=== PATIENT | female | born 1980 | race Caucasian/White ===

== ENCOUNTER 2017-05-19 22:26 | Emergency (ER) | payer OTHER ==
[2017-05-19 22:46] VITALS: BP 140/73; PULSE 85; TEMP 98.3; BMI 29.8
--- NOTE | 2017-05-19 23:20 | PDOC ---
History of Present Illness - History of Present Illness Initial Comments: 05/19/17 23:41 The patient is a 36 year old female, with a significant past medical history of trigeminal neuralgia, who presents to the emergency department with 5 days of right sided facial pain extending from her right maxilla to her her posterior right ear without extension past her right jaw. The patient states she has not experienced this pain in a while, however, the last experience with this pain only lasted one day. She states she can not eat, sleep, talk, or touch her face without experiencing pain. She states she has been taking Tylenol with little to no relief of her pain. She reports the right side of her throat hurts when she swallows. She states she was advised not to take aspirin or ibuprofen because she is two weeks into methotrexate treatment for ectopic . She reports using hot tea bags on the right, upper gums in her mouth which offers temporary pain relief. She also reportedly used heated bags of rice just under her right eye which also alleviated some pain there temporarily. She denies blurred vision. She denies tinnitus. She denies chest pain, shortness of breath, headache and dizziness. She denies fever, chills, nausea, vomit, diarrhea and constipation. She denies dysuria, frequency, urgency and hematuria. Allergies: clindamycin Neuologist: Dr. Nicholas Marie ([facility]) <Venita Torres - Last Filed: 05/19/17 23:44> <Jack Phillips - Last Filed: 05/20/17 02:23> - General Chief Complaint: Pain Stated Complaint: FACIAL PAIN Time Seen by Provider: 05/19/17 23:19 Past History <Venita Torres - Last Filed: 05/19/17 23:44> - Past Medical History COPD: No Other medical history: trigeminal neuralgia - Immunization History Immunization Up to Date: Yes - Suicide/Smoking/Psychosocial Hx Smoking History: Current every day smoker Number of Cigarettes Smoked Daily: 10 Information on smoking cessation initiated: No Hx Alcohol Use: No Drug/Substance Use Hx: No Substance Use Type: None Hx Substance Use Treatment: No <Jack Phillips - Last Filed: 05/20/17 02:23> - Past Medical History Allergies/Adverse Reactions: Allergies Allergy/AdvReac Type Severity Reaction Status Date / Time clindamycin Allergy Verified 05/19/17 22:42 Home Medications: Ambulatory Orders Simethicone [Gas Relief] 80 mg PO QID PRN #16 tab.chew 02/24/16 Carbamazepine 200 mg PO BID #20 tablet 05/20/17 Oxycodone HCl/Acetaminophen [Percocet 5-325 mg Tablet] 1 tab PO Q6H #10 tablet MDD 3 05/20/17 Review of Systems - Review of Systems Able to Perform ROS?: Yes Comments:: 05/19/17 23:42 CONSTITUTIONAL: No fever, no chills, no fatigue EENT: (+) right facial pain and right throat pain with swallowing. No visual changes. CARDIOVASCULAR: No chest pain, no palpitations RESPIRATORY: No cough, no SOB GI: No abdominal pain, no nausea, no vomiting, no constipation, no diarrhea GENITOURINARY: No dysuria, no frequency, no hematuria MUSKULOSKELETAL: No backpain, no joint pain, no myalgias SKIN: No rash NEURO: No headache <Venita Torres - Last Filed: 05/19/17 23:44> *Physical Exam - Vital Signs Last Vital Signs Temp Pulse Resp BP Pulse Ox 98.3 F 85 18 140/73 98 05/19/17 22:42 05/19/17 22:42 05/19/17 22:42 05/19/17 22:42 05/19/17 22:42 - Physical Exam Comments: 05/19/17 23:43 CONSTITUTIONAL: Well-appearing; well-nourished; in no apparent distress HEAD: Normocephalic; atraumatic EYES: PERRL; EOM intact ENMT: External appears normal; normal oropharynx NECK: Supple; non-tender; no cervical lymphadenopathy CARD: Normal S1, S2; no murmurs, rubs, or gallops RESP: Normal chest excursion with respiration; breath sounds clear and equal bilaterally; no wheezes, rhonchi, or rales ABD: Soft, non-distended; non-tender; no palpable organomegaly, no palpable hernias EXT: Normal ROM in all four extremities; non-tender to palpation; distal pulses intact SKIN: Warm, dry, no rash NEURO: (+) hypersensitivity to touch along the V2 distribution on the right. No focal neurological deficiencies. <Venita Torres - Last Filed: 05/19/17 23:44> - Vital Signs Last Vital Signs Temp Pulse Resp BP Pulse Ox 98.3 F 85 18 140/73 98 05/19/17 22:42 05/19/17 22:42 05/19/17 22:42 05/19/17 22:42 05/19/17 22:42 <Jack Phillips - Last Filed: 05/20/17 02:23> Medical Decision Making - Medical Decision Making 05/20/17 00:55 Patient is a 36-year-old female with history of trigeminal neurology presents with severe lancinating right-sided facial pain in the V2 distribution. Symptoms consistent with trigeminal neuralgia. We'll administer carbamazepine and Percocet. Will reassess. Likely discharge. <Jack Phillips - Last Filed: 05/20/17 02:23> *DC/Admit/Observation/Transfer - Attestations Scribe Attestion: 05/19/17 23:44 Documentation prepared by Venita Torres, acting as medical office worker for Jack Phillips MD <Venita Torres - Last Filed: 05/19/17 23:44> - Attestations Physician Attestion: 05/20/17 00:55 The documentation was prepared by the scribe under my direct supervision. I have reviewed the documentation which correctly represents the findings, medical decision-making and critical action taken by me. <Jack Phillips - Last Filed: 05/20/17 02:23> Diagnosis at time of Disposition: Trigeminal neuralgia of right side of face - Discharge Dispostion Disposition: HOME Condition at time of disposition: Stable - Referrals Referrals: Julio Lyles MD [Primary Care Provider] - - Patient Instructions Printed Discharge Instructions: DI for Trigeminal Neuralgia Additional Instructions: Your currently being given methotrexate which may lead suppression of bone marrow production of white and red cells. Carbamazepine may also cause similar suppression. Carbamazepine may also cause severe rash. Stop the medication immediately and follow-up with your primary care physician or the ER if you develop a rash. - Post Discharge Activity
[2017-05-20] MEDS ORDERED: carBAMazepine 200 MG TABLET PO ONE (01:37)
[2017-05-20] MEDS ORDERED: carBAMazepine XR 200 MG TAB.ER.12H PO ONE (23:31)
== END 2017-05-20 02:58 | disposition home or self-care (01) ==
LOC: JER 22:26
DX: G50.0 Trigeminal neuralgia (principal)
CPT/HCPCS: 99282-25